=== PATIENT | female | born 1995 | race Asian ===

== ENCOUNTER 2022-01-20 19:06 | Emergency (ER) | payer SELFPAY ==
[~2022-01-20] VITALS: Ht 167.6 cm; Wt 100.0 kg
[2022-01-20 20:14] LABS: BASOPHILS % (AUTO) 0.7 % (0.0-2.0); HEMATOCRIT 40.3 % (36-46); HEMOGLOBIN 13.7 g/dL (12.0-16.0); LYMPHOCYTES # (AUTO) 3.7 K/uL (1.0-4.8); LYMPHOCYTES % (AUTO) 33.5 % (22.0-44.0); MEAN CORPUSCULAR HEMOGLOBIN 28.1 pg (26.0-34.0); MEAN CORPUSCULAR HGB CONC 33.9 G/dL (31.0-37.0); MEAN CORPUSCULAR VOLUME 83 fL (80-100); MONOCYTES # (AUTO) 0.8 K/uL (0.1-1.0); MONOCYTES % (AUTO) 7.3 % (2.0-9.0); NEUTROPHILS # (AUTO) 6.3 K/uL (1.8-7.7); NEUTROPHILS % (AUTO) 56.5 % (40.0-70.0); PLATELET COUNT (AUTO) 436 K/uL (150-450); RED BLOOD CELL COUNT(AUTO) 4.86 MIL/uL (4.00-5.20); RED CELL DISTRIBUTION WIDTH 12.9 % (11.5-14.5)
[2022-01-20 20:24] LABS: ANION GAP 4 mmol/L (8-16); CALCIUM, TOTAL 9.5 mg/dL (8.8-10.5); CARBON DIOXIDE 30 mmol/L (22-29); CHLORIDE 99 mmol/L (98-107); CREATININE 0.75 mg/dL (0.60-1.30); GLUCOSE,RANDOM 221 mg/dL (70-110); POTASSIUM 3.7 mmol/L (3.5-5.1); SODIUM SERUM 133 mmol/L (136-145); UREA NITROGEN, BLOOD 10 mg/dL (7-18)
[2022-01-20 20:25] LABS: GLOMERULAR FILTR. RATE CALC > 60 mL/min (>60)
[2022-01-20 20:51] LABS: ALANINE AMINOTRANSFERASE 19 U/L (12-78); ALBUMIN 3.6 g/dL (3.4-5.0); ALKALINE PHOSPHATASE 65 U/L (46-116); ASPARTATE AMINOTRANSFERASE 11 U/L (15-37); BILIRUBIN,TOTAL 0.3 mg/dL (0.1-1.0); HCG,QUANTITATIVE 2165 mIU/mL (0-6); TOTAL PROTEIN, SERUM 7.4 g/dL (6.4-8.2)
[2022-01-20 21:06] LABS: APPEARANCE,URINE TURBID (CLEAR); BILIRUBIN,URINE NEGATIVE (NEGATIVE); GLUCOSE, URINE (UA) >=1000 mg/dL (NEGATIVE); LEUKOCYTE ESTERASE ,URINE MODERATE (NEGATIVE); NITRATE,URINE NEGATIVE (NEGATIVE); OCCULT BLOOD,URINE NEGATIVE (NEGATIVE); PH,URINE 8.5 (5.0-8.0); PROTEIN,URINE 30-70 mg/dL (NEGATIVE); SPECIFIC GRAVITIY, URINE 1.028 (1.003-1.030); UROBILINOGEN,URINE <=1.0 mg/dL (<=1.0)
[2022-01-20 21:32] LABS: AMORPHOUS SEDIMENT,UR Moderate /LPF (None Seen); BACTERIA,URINE Few /HPF (None Seen); RBC,URINE 0-2 /HPF (0-2); SQUAMOUS EPITHELIAL CELL,UR Few /LPF (None Seen)
[2022-01-20 22:55] VITALS: BP 145/79
[2022-01-20] MEDS ORDERED: CEPH-558 PO (23:02)
[2022-01-20] MEDS: CEPHALEXIN MONOHYDRATE 500 MG CAPSULE PO ONE (23:37)
== END 2022-01-20 23:38 | disposition home or self-care (01) ==
LOC: EMS 19:09
DX: O46.91 Antepartum hemorrhage, unspecified, first trimester (principal); O24.911 Unspecified diabetes mellitus in pregnancy, first trimester; O26.891 Other specified pregnancy related conditions, first trimester; R82.71 Bacteriuria; E11.65 Type 2 diabetes mellitus with hyperglycemia; R10.9 Unspecified abdominal pain; Z3A.01 Less than 8 weeks gestation of pregnancy
CPT/HCPCS: 76830; 76856; 80053; 81001; 84702; 85025; 86901; 99284

== ENCOUNTER 2022-01-23 07:42 | Emergency (ER) | payer SELFPAY ==
[~2022-01-23] VITALS: Ht 165.1 cm; Wt 90.9 kg
[~2022-01-23 07:42] MED LIST: CEPH-558 PO
[2022-01-23 09:49] VITALS: BP 131/69
== END 2022-01-23 09:55 | disposition home or self-care (01) ==
LOC: EMS 08:00
DX: O26.891 Other specified pregnancy related conditions, first trimester (principal); Z3A.00 Weeks of gestation of pregnancy not specified
CPT/HCPCS: 84702; 99283

== ENCOUNTER 2024-12-31 08:39 | Emergency (ER) | payer OTHER ==
[~2024-12-31] VITALS: Ht 160 cm; Wt 79.5 kg
[2024-12-31 08:49] VITALS: TEMP 98
[2024-12-31] MEDS ORDERED: IBUP-1554 PO (12:29)
[2024-12-31 12:33] VITALS: BP 126/85; PULSE 88; RESP 16; O2SAT 99
== END 2024-12-31 12:42 | disposition home or self-care (01) ==
LOC: EMS 08:46
DX: S39.012A Strain of muscle, fascia and tendon of lower back, initial encounter (principal); M25.521 Pain in right elbow; M25.571 Pain in right ankle and joints of right foot; V89.2XXA Person injured in unspecified motor-vehicle accident, traffic, initial encounter; Y93.89 Activity, other specified; Y92.410 Unspecified street and highway as the place of occurrence of the external cause; Y99.8 Other external cause status
CPT/HCPCS: 72040; 72070; 72100; 99284; Z7502